=== PATIENT | female | born 1990 | race American Indian/Alaskan Native ===

== ENCOUNTER 2021-05-23 09:41 | Emergency (ER) | payer MEDICAID ==
[2021-05-23] MEDS ORDERED: IBUPROFEN 800 MG TAB PO STA (11:32)
[2021-05-23] MEDS ORDERED: ACETAMINOPHEN 500 MG TAB PO ONE (11:33)
[2021-05-23] MEDS ORDERED: predniSONE 20 MG TAB PO ONE (11:33)
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
[2021-05-23 13:52] VITALS: BP 108/41
== END 2021-05-23 13:51 | disposition home or self-care (01) ==
LOC: ED 09:41
DX: M54.2 Cervicalgia (principal); M54.9 Dorsalgia, unspecified; V89.2XXA Person injured in unspecified motor-vehicle accident, traffic, initial encounter; Y93.89 Activity, other specified; Y92.89 Other specified places as the place of occurrence of the external cause; Y99.8 Other external cause status
CPT/HCPCS: 99282; J7512